=== PATIENT | female | born 1975 | race African-American/Black ===

== ENCOUNTER 2016-12-20 11:09 | Emergency (ER) | payer OTHER ==
[~2016-12-20 11:09] MED LIST: LEXAPRO PO; RISPERIDONE PO; ZYPREXA PO
[2016-12-20 13:02] LABS: URINE SOURCE CLEAN CATCH
[2016-12-20 13:21] LABS: URINE APPEARANCE CLOUDY; URINE BILIRUBIN NEG (NEG); URINE BLOOD 2+ (NEG); URINE COLOR YELLOW; URINE GLUCOSE NEG (NEG); URINE KETONE 2+ (NEG); URINE LEUKOCYTE ESTERASE NEG (NEG); URINE NITRATE NEG (NEG); URINE PH 5.5 (5-8); URINE PROTEIN 1+ (NEG); URINE SPECIFIC GRAVITY 1.026 (1.003-1.035)
[2016-12-20 13:24] LABS: URBCS1 AUWI 0-2 /[HPF] (0-2); URINE BACTERIA AUWI NEG (NEGATIVE); URINE SQUAMOUS EPITHELIAL CELL OCC /[HPF]
[2016-12-20 13:26] LABS: CULTURE INDICATED? NO
[2016-12-20 13:32] LABS: BASOPHIL% 0.4 % (0-2.5); HEMOGLOBIN 9.5 gm/dL (12.0-16.0); LYMPHOCYTE# 0.6 X10e3 (1.0-3.5); LYMPHOCYTE% 32.8 % (17.0-45.0); MEAN CELL VOLUME 82.7 FL (83-96); MEAN CORPUSCULAR HGB CONC 32.6 g/dL (30-36); MEAN PLATELET VOLUME 9.3 FL (6.5-11.5); MONOCYTE# 0.2 X10e3 (0-1.0); NEUTROPHIL% 56.8 % (40-75); PLATELET COUNT 209 X10e3 (140-420); RED CELL DISTRIBUTION WIDTH 14.1 % (11.0-15.5); WHITE BLOOD COUNT 1.8 X10e3 (4.0-10.5)
[2016-12-20 13:39] LABS: DIFF IND YES
[2016-12-20 13:48] LABS: ALBUMIN SERUM 4.5 g/dL (3.5-5.0); ALKALINE PHOSPHATASE 31 U/L (32-92); ALT (SGPT) 20 U/L (10-40); AST (SGOT) 23 U/L (10-42); BILIRUBIN, DIRECT 0.1 mg/dL (0.0-0.2); BILIRUBIN,INDIRECT 0.5 mg/dL (0.0-0.9); BILIRUBIN,TOTAL 0.6 mg/dL (0.2-2.0); BLOOD UREA NITROGEN 8 mg/dL (9-23); BUN/CREATININE RATIO 13.33; CALCIUM SERUM 8.8 mg/dL (8.4-10.2); CARBON DIOXIDE 24 mmol/L (22-31); CHLORIDE 105 mmol/L (100-111); CREATININE SERUM 0.6 mg/dL (0.6-1.4); GLOM FILT RATE Estimated 129.4 mL/min (>60); GLUCOSE FASTING 89 mg/dL (70-110); POTASSIUM 3.4 mmol/L (3.5-5.1); PROTEIN TOTAL SERUM 7.9 g/dL (6.0-8.3); SALICYLATE <4.0 mg/dL; SODIUM 138 mmol/L (135-145)
[2016-12-20 13:49] LABS: ACETAMINOPHEN <10 ug/mL; ALCOHOL BLOOD <5 mg/dL ([, 0])
[2016-12-20 13:53] LABS: AMPHETAMINE NEG (NEG); BARBITURATES NEG (NEG); BENZODIAZEPINES NEG (NEG); COCAINE NEG (NEG); MARIJUANA NEG (NEG); OPIATES NEG (NEG); TRICYCLIC ANTIDEPRESSANTS NEG (NEG); U METHADONE NEG (NEG)
[2016-12-20 14:42] LABS: ANISOCYTOSIS SL; PLATELET ESTIMATE NORMAL (NORMAL)
== END 2016-12-20 18:30 ==
LOC: CED 11:09
PROVIDERS: Emergency Medicine
DX: F20.0 Paranoid schizophrenia (principal); D70.9 Neutropenia, unspecified; Z79.899 Other long term (current) drug therapy
CPT/HCPCS: 36415; 80048; 80076; 80307; 81003; 84703; 85025; 87806; 99285; G0480; J1447

== ENCOUNTER 2016-12-20 14:22 | Inpatient (IN) | payer OTHER ==
[~2016-12-20] VITALS: Ht 162.6 cm; Wt 47.2 kg
--- NOTE | ~2016-12-20 | DS ---
Unit #: [id number] #: [id number] Patient: [facility]HEK LEVY [id number] [facility] [address] [place] [address] [id number] I MR#: [id number] NAME: ABHISHEK LEVY ROOM: P115 Age: 41 Sex: F Admission Date: 12/20/2016 : 1975 Discharge Date: 12/25/2016 Attending Physician: Noemy Barksdale M.D. Primary Care Physician: Fede Wilson M.D. DISCHARGE SUMMARY IDENTIFYING DATA Ms. Levy is a 41-year-old, single, female, who is a resident of [place], [place], and was transferred to us from [facility] Emergency Room. DISCHARGE DIAGNOSES Psychiatric: Schizoaffective disorder, bipolar type, most recent episode depressed, recurrent, moderate, without psychotic features. Medical: Diabetes mellitus and glaucoma. Stressors: Mild psychosocial stressors. HISTORY OF PRESENT ILLNESS Please see initial psychiatric evaluation for details. PAST PSYCHIATRIC HISTORY Please see initial psychiatric evaluation for details. PAST MEDICAL HISTORY Please see initial psychiatric evaluation for details. HOSPITAL COURSE The patient was admitted to the adult psychiatric unit at [facility] thalia Genao and was oriented to the hospital environment. Routine p.r.n. medications were initiated, and she was started back on her home medications. Risperdal as an antipsychotic was initiated at 1 mg at bedtime and the patient was closely monitored. She was anxious, withdrawn and rather seclusive to herself, though was able to show compliance with medications and for the most part, was seen to be rather seclusive and with blunted affect, and exhibiting some persistent depression and some underlying psychosis; however, no agitation, aggression, hostility were noted and she was not seen to be a danger to self or anyone else, and as such, was seen to be showing a therapeutic response to medication, particularly Risperdal, which was then maintained at 1 mg at bedtime, though I did consider switching that to long-acting injectable antipsychotic, which will remain a strong recommendation on an outpatient basis due to the patient's history of poor compliance with medications leading to rapid decompensation and the fact that she has been showing a fairly decent therapeutic response to Risperdal. At this time, the patient does not pose a threat to herself or anyone else, and as such, it was decided that she will be discharged home and we will recommend ongoing outpatient psychiatric treatment through local [facility] Unit #: [id number] #: [id number] Patient: ABHISHEK LEVY [place]. DISCHARGE CONDITION Stable. PROGNOSIS Fair. Dictated by... Janice Cassidy/hallie TD: 12/25/2016 06:57 JOB #: [id number] DISCHARGE SUMMARY Page 1 of 1 X Noemy Barksdale MD X DISCHARGE SUMMARY
--- NOTE | ~2016-12-20 | CO ---
Unit #: [id number] #: [id number] Patient: ABHISHEK LEVY [id number] [facility] [place] [address] [id number] MR#: [id number] NAME: ABHISHEK LEVY. ROOM: P115 Age: 41 Sex: F Admission Date: 12/20/2016 : 1975 Attending Physician: Noemy Barksdale M.D. Primary Care Physician: Fede Wilson M.D. Consultation Date: 12/21/2016 CONSULTATION REPORT ORDERING PROVIDER Dr. Barksdale. REASON FOR CONSULT Abnormal CBC. SUBJECTIVE The patient was informed that she was neutropenic while recently at the hospital, she was prescribed Granix 480 mcg, but she refused that. She reports a recent infection with food poisoning; however, her symptoms do not seem consistent with this finding and I think it is perhaps paranoid delusion. She reports feeling otherwise okay. OBJECTIVE Her examination is unremarkable. Her laboratory values reveal a white blood cell count of 1.8, red blood cell count of 3.5, hemoglobin of 9.5, and hematocrit of 29. Her HIV was noted to be negative. ASSESSMENT 1. Neutropenia. 2. Anemia. PLAN The patient was agreeable to the Granix injection. I do believe she also needs to see Hematology on an outpatient basis. Iron was ordered with vitamin C and Hemoccult stool will be done. We will repeat CBC in 1 to 2 weeks if the patient is still at [facility] thalia [facility]. Dictated by... Jus Quevedo/hallie TD: 12/22/2016 12:04 JOB #: [id number] Unit #: [id number] #: [id number] Patient: ABHISHEK LEVY CONSULTATION REPORT Page 1 of 1 X RED ALLISON APRN CONSULTATION REPORT
--- NOTE | ~2016-12-20 | PN ---
Unit #: [id number] #: [id number] Patient: ABHISHEK ELVY [id number] [facility] [address] [place] [address] [id number] I MR#: [id number] NAME: ABHISHEK LEVY. ROOM: P115 Age: 41 Sex: F Admission Date: 12/20/2016 : 1975 Attending Physician: Noemy Barksdale M.D. Admitting Physician: Noemy Barksdale M.D. Primary Care Physician: Janice John PROGRESS NOTES DATE December 22, 2016 DISCUSSION Ms. Levy is a 41-year-old female, who was seen today and chart was reviewed and the case was discussed with the staff. She has been anxious, withdrawn, disorganized, and rather seclusive to herself, and overall is seen to be a poor historian, she has been taking the medications and tolerating them fairly well with no reported side effects. MENTAL STATUS EXAMINATION Middle-aged female, who was casually dressed with fair personal hygiene and appears to be in no acute distress or discomfort. The patient was awake and alert with impaired attention and concentration. Her mood is anxious and depressed with a congruent affect. Her speech is slow and restricted in content. She denies any suicidal or homicidal ideations. Her insight and judgment remain slightly impaired. TREATMENT PLAN 1. We will continue her on her current medications and treatment protocol, and will monitor her response to the medications, and make further adjustments as needed. 2. We will continue to followup. Dictated by... Janice Cassidy/rome TD: 12/23/2016 10:37 JOB #: [id number] Unit #: [id number] #: [id number] Patient: ABHISHEK LEVY PROGRESS NOTES Page 1 of 1 X Noemy Barksdale MD PROGRESS NOTE
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
--- NOTE | ~2016-12-20 | HP ---
Unit #: [id number] #: [id number] Patient: ABHISHEK LEVY [id number] [place] [address] [id number] MR#: [id number] NAME: ABHISHEK LEVY. ROOM: 15 Age: 41 Sex: F Admission Date: 12/20/2016 : 1975 Attending Physician: Noemy Barksdale M.D. Admitting Physician: Noemy Barksdale M.D. Primary Care Physician: Fede Wilson M.D. HISTORY AND PHYSICAL HISTORY OF PRESENT ILLNESS The patient is a 41-year-old female admitted to [address] [place] [address] on 12/20/2016 for psychosis. PAST MEDICAL HISTORY 1. Diabetes. 2. Glaucoma. 3. Neutropenia. PAST SURGICAL HISTORY The patient denies. SOCIAL HISTORY She is unemployed. She lives with her children. She denies alcohol, tobacco, and drug use. FAMILY MEDICAL HISTORY Noncontributory. ALLERGIES No known drug allergies. CURRENT MEDICATIONS The patient is not on any home medications. REVIEW OF SYSTEMS CONSTITUTIONAL: No fever or chills. HEENT: Denies any sore throat, ear pain or runny nose. CARDIOVASCULAR: Denies chest pain, irregular heart rhythm or palpitations. CHEST: Denies shortness of breath or cough. No hemoptysis. GASTROINTESTINAL: Denies nausea, vomiting, diarrhea or chronic constipation. ENDOCRINE: Denies history of increased thirst or urination. No recent significant weight loss or gain. GENITOURINARY: Denies dysuria, frequency, or hematuria. SKIN: Denies any rashes. HEMATOLOGIC: Denies history of increased bleeding or bruising. MUSCULOSKELETAL: Denies any hot, swollen joints. No generalized muscle pain. NEUROLOGIC: Denies problems with vision or speech. No frequent, severe headaches. No numbness, tingling or weakness in any extremities. Denies loss of bladder or bowel control. Unit #: [id number] #: [id number] Patient: ABHISHEK LEVY PHYSICAL EXAMINATION GENERAL: She is awake, alert, and oriented in no acute distress. VITAL SIGNS: Temperature 97.7, heart rate 81, respirations 18, blood pressure 118/73. HEIGHT: 5 feet 4. WEIGHT: 104 pounds. SKIN: Warm and dry without rash or lesion. HEENT: Normocephalic. TMs not viewed. Oral and nasal passages clear. Conjunctivae clear. PERRLA. EOMs intact. NECK: Supple without lymphadenopathy or thyromegaly. HEART: Regular rate and rhythm without murmur. LUNGS: Clear. ABDOMEN: Soft, nontender. : Not done. EXTREMITIES: No evidence of cyanosis, clubbing or edema. Moves all without focal deficit. NEUROLOGICAL: Grossly within normal limits. Cranial Nerves: II: Visual clark are intact. III, IV AND : Extraocular movements are intact. Pupils are equal, round and reactive to light. V: Facial sensation is grossly normal. VII: Facial movements and expression are normal. VIII: Auditory acuity grossly intact. IX, X: Uvula is midline. Phonation is normal. XI: Patient shrugs shoulders and turns head normally. XII: Tongue protrudes in the midline. Sensory and Motor Function: Sensory and motor sensation is grossly normal. Motor: moves all extremities well. IMPRESSION 1. Psychiatric admission. 2. Diabetes. 3. Glaucoma. RECOMMENDATIONS PSYCHIATRIC: Per psychiatrist. MEDICAL: No contraindication to participate in this facility activities. MEDICAL PROGNOSIS Good. MEDICAL CONDITION Stable. Dictated by... Jus Quevedo/prieto TD: 12/21/2016 15:40 JOB #: [id number] Unit #: [id number] #: [id number] Patient: ABHISHEK LEVY HISTORY AND PHYSICAL Page 1 of 1 X RED ALLISON APRN HISTORY AND PHYSICAL
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
--- NOTE | ~2016-12-20 | PN ---
Unit #: [id number] #: [id number] Patient: ABHISHEK LEVY [id number] [facility] [address] [place] [address] [id number] MR#: [id number] NAME: ABHISHEK LEVY. ROOM: P115 Age: 41 Sex: F Admission Date: 12/20/2016 : 1975 Attending Physician: Noemy Barksdale M.D. Admitting Physician: Noemy Barksdale M.D. Primary Care Physician: Janice John PROGRESS NOTES DATE 12/24/2016 DISCUSSION Ms. Levy is a 41-year-old female who was seen today and chart was reviewed and case was discussed with the staff. She has been anxious, withdrawn and rather seclusive to herself. Meanwhile, she has been exhibiting bizarre behavior with poor personal hygiene and rather (1) activities of daily living and inability to carry on any meaningful conversation. MENTAL STATUS EXAMINATION Middle-aged female who was casually dressed with fair personal hygiene, appears to be in no acute distress or discomfort. She was awake and alert with impaired attention and concentration. intact orientation. Her mood was anxious with congruent affect. Her speech was slow and restricted in content. Her thought processes were disorganized with some looseness of associations, thought blocking and paranoid ideations. Her insight and judgement remains significantly impaired. TREATMENT PLAN 1. We will continue her on her current treatment protocol. We will monitor her response to the medication and make further adjustments as needed. 2. We will continue to follow up. Dictated by... Janice Cassidy/vance TD: 12/25/2016 03:56 JOB #: [id number] Unit #: [id number] #: [id number] Patient: ABHISHEK LEVY PROGRESS NOTES Page 1 of 1 X Noemy Barksdale MD PROGRESS NOTE
--- NOTE | ~2016-12-20 | PN ---
Unit #: [id number] #: [id number] Patient: ABHISHEK LEVY [id number] [facility] [address] [place] [address] [id number] MR#: [id number] NAME: ABHISHEK LEVY. ROOM: P115 Age: 41 Sex: F Admission Date: 12/20/2016 : 1975 Attending Physician: Noemy Barksdale M.D. Admitting Physician: Noemy Barksdale M.D. Primary Care Physician: Janice John PROGRESS NOTES DATE 12/23/2016 DISCUSSION Ms. Levy is a 41-year-old female who was seen today and chart was reviewed and case was discussed with the staff. She has been anxious, withdrawn, unkempt, disheveled, disorganized and seclusive to herself and was unable to carry on meaningful conversation and appears to be out of touch with reality. Meanwhile, she has been taking the medications and tolerating them fairly well with no reported side effects. MENTAL STATUS EXAMINATION Middle-aged female who was casually dressed with fair personal hygiene, appears to be in no acute distress or discomfort. She was awake and alert with impaired attention and concentration. Her mood was anxious with congruent affect. She denies any suicidal or homicidal ideations. Her insight and judgement remains slightly impaired. TREATMENT PLAN 1. We will continue her on her current medications and treatment protocol. We will monitor her response to the medication and make further adjustments as needed. 2. We will continue to follow up. Dictated by... Janice Cassidy/vance TD: 12/24/2016 04:43 JOB #: [id number] Unit #: [id number] #: [id number] Patient: ABHISHEK LEVYDERIAN PROGRESS NOTES Page 1 of 1 X Noemy Barksdale MD PROGRESS NOTE
== END 2016-12-25 12:55 | disposition home or self-care (01) | DRG 885 ==
LOC: P1S 19:11
DX: F25.0 Schizoaffective disorder, bipolar type (principal); D70.9 Neutropenia, unspecified; F31.32 Bipolar disorder, current episode depressed, moderate; E11.9 Type 2 diabetes mellitus without complications; H40.9 Unspecified glaucoma; F41.9 Anxiety disorder, unspecified; D64.9 Anemia, unspecified
CPT/HCPCS: 82947; 83036; J1447